=== PATIENT | male | born 1955 | race Caucasian/White ===

== ENCOUNTER 2023-03-16 08:58 | Outpatient (CLI) | payer MEDICARE ==
--- NOTE | 2023-03-18 20:59 | CT Report ---
PROCEDURE: SINUS SCREENING WO INDICATIONS: CHRONIC SPHENOIDAL SINUSITIS, EUSTACHIAN TUBE DYSF TECHNIQUE: Noncontrast 3.0 mm axial images acquired from the frontal sinuses to the mid-sella, with coronal and sagittal reformats. For radiation dose reduction, the following was used: automated exposure control , adjustment of mA and/or kV according to patient size. COMPARISON: None. FINDINGS: Image quality: Excellent. Maxillary Sinuses: Trace lobulated mucosal thickening inferiorly in the right maxillary sinus. Polypo id mucosal thickening at the inferior anterior aspect of the left maxillary sinus. There is an adjace nt dental hardware piece protruding into the sinus floor. No osseous remodeling or osteitis. Ethmoid Air Cells: Very minor mucosal thickening. No bony remodeling or destruction. Sphenoid Sinuses: Mild polypoid mucosal thickening obstructing sphenoid sinus outflow tracts bilater ally. No other significant sphenoid sinus disease. Frontal Sinuses: Normally aerated. 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 The outflow tracts are patent. Ostiomeatal Complexes: Ostiomeatal complexes are patent. No Leighann cells. Miscellaneous: Visualized intra-orbital contents are normal. No pal bullosa. 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 No mass lesions in t he posterior nasopharynx. IMPRESSION: 1. Scattered small polypoid mucosal lesions in bilateral maxillary and sphenoid sinuses. One may be r elated to an adjacent piece of dental hardware protrusion into the left maxillary sinus. 2. Sphenoid sinus outflow tracts appear to be obscured by small mucosal lesions. 3. Leftward nasal septal deviation resulting in decreased size of left nasal passage. Reviewed by: Melanie Michelle MD on 03/18/2023 8:57 PM PDT Approved by: Melanie Michelle MD on 03/18/2023 8:57 PM PDT Station ID: [id number]
== END 2023-03-16 08:59 | disposition home or self-care (01) ==
LOC: DI 08:58
PROVIDERS: ATTEND Emergency Medicine
DX: J32.3 Chronic sphenoidal sinusitis (principal); H69.83 Other specified disorders of Eustachian tube, bilateral; J34.89 Other specified disorders of nose and nasal sinuses; J34.2 Deviated nasal septum